=== PATIENT | female | born 2000 | race Two or more races ===

== ENCOUNTER → 2022-09-06 | Emergency (ER) | payer OTHER ==
[~2022-09-06] VITALS: Ht 170.2 cm; Wt 53.5 kg
== END | disposition home or self-care (01) ==
LOC: EMR PED 17:43 → ER 17:52 → EMR PED 17:52
DX: R07.89 Other chest pain (principal); M94.0 Chondrocostal junction syndrome [Tietze]; E16.1 Other hypoglycemia; Z91.013 Allergy to seafood; M62.838 Other muscle spasm

== ENCOUNTER 2022-12-27 19:28 | Emergency (ER) | payer OTHER ==
[~2022-12-27] VITALS: Ht 170.2 cm; Wt 55.8 kg
== END 2022-12-28 06:52 | disposition home or self-care (01) ==
LOC: ER 19:28 → EMR PED 19:30 → ER 19:30 → EMR PED 12-28 06:52
DX: R11.10 Vomiting, unspecified (principal); R10.9 Unspecified abdominal pain; E86.0 Dehydration; R50.9 Fever, unspecified; Z20.822 Contact with and (suspected) exposure to COVID-19; Z91.013 Allergy to seafood

== ENCOUNTER 2024-03-08 05:30 | Emergency (ER) | payer OTHER ==
[~2024-03-08] VITALS: Ht 167.6 cm; Wt 59.0 kg
[2024-03-08] MEDS ORDERED: CEFTRIAXONE SODIUM 1,000 MG VIAL IM STA (08:53)
== END 2024-03-08 09:09 | disposition home or self-care (01) ==
LOC: ER 05:32
DX: T81.49XD Infection following a procedure, other surgical site, subsequent encounter (principal); Y92.89 Other specified places as the place of occurrence of the external cause; Z91.013 Allergy to seafood

== ENCOUNTER 2024-07-21 19:31 | Emergency (ER) | payer OTHER ==
[~2024-07-21] VITALS: Ht 165.1 cm; Wt 54.4 kg
[2024-07-21] MEDS ORDERED: ORPHENADRINE CITRATE 30 MG/ML AMPUL IM STA (20:33)
[2024-07-21] MEDS ORDERED: KETOROLAC TROMETHAMINE 30 MG VIAL IM STA (20:33)
[2024-07-21 20:58] LABS: HEMOGLOBIN 11.4 g/dL (12.0-15.00); MEAN CELL VOLUME 77.8 fL (80.00-100.00); MEAN CORPUSCULAR HEMOGLOBIN 25.3 pg (27.00-32.0); MEAN CORPUSCULAR HGB CONC 32.6 g/dl (32.0-36.0); PLATELET COUNT 260 K/uL (150-450); RED BLOOD COUNT 4.49 M/uL (4.00-6.00); RED CELL DISTRIBUTION WIDTH 15.4 % (11.5-14.5)
[2024-07-21 21:35] LABS: CREATININE SERUM 0.87 mg/dL (0.55-1.02); GFR 81.42; POTASSIUM 4.24 mEq/L (3.5-5.1)
== END 2024-07-21 22:26 | disposition home or self-care (01) ==
LOC: ER 19:33
PROVIDERS: General Practice
DX: R51.9 Headache, unspecified (principal); R42 Dizziness and giddiness; Z91.013 Allergy to seafood